=== PATIENT | female | born 1955 | race Caucasian/White ===

== ENCOUNTER 2020-05-25 16:43 | Outpatient (CLI) | payer MEDICARE, OTHER | END 2020-05-25 23:59 | disposition home or self-care (01) | LOC: RAD 16:43 → MERGE 16:45 → RAD 23:59 | PROVIDERS: ATTEND Physician Assistant | DX: N13.2 Hydronephrosis with renal and ureteral calculous obstruction (principal); R14.0 Abdominal distension (gaseous) | CPT/HCPCS: 74176 ==